=== PATIENT | female | born 1945 | race African-American/Black ===

== ENCOUNTER 2021-09-16 15:00 | Inpatient (IN) | payer MEDICAID, MEDICARE, OTHER ==
[~2021-09-16] VITALS: Ht 167.6 cm; Wt 115.7 kg
[2021-09-16] MEDS ORDERED: FOLI1TAB94 PO (15:15)
[2021-09-16] MEDS ORDERED: ONDA-104 PO (15:15)
[2021-09-16] MEDS ORDERED: TOPI25TA PO (15:15)
[2021-09-16] MEDS ORDERED: LOSA100T31 PO (15:15)
[2021-09-16] MEDS ORDERED: ACET-2154 PO (15:15)
[2021-09-16] MEDS ORDERED: THIA100T13 PO (15:15)
[2021-09-16] MEDS ORDERED: PANT40TA49 PO (15:15)
[2021-09-16] MEDS ORDERED: ASCO500C18 PO (15:15)
[2021-09-16] MEDS ORDERED: FURO-151 PO (15:15)
[2021-09-16] MEDS ORDERED: DOCU100C36 PO (15:15)
[2021-09-16] MEDS ORDERED: SIMV-46 PO (15:15)
[2021-09-16] MEDS ORDERED: POLY17PO4 PO (15:15)
[2021-09-16] MEDS ORDERED: ARIP5TAB10 PO (15:15)
[2021-09-16] MEDS ORDERED: FAMO20TA8 PO (15:15)
[2021-09-16] MEDS ORDERED: METO-357 PO (15:15)
[2021-09-16] MEDS ORDERED: MELO15TA13 PO (15:15)
[2021-09-16] MEDS ORDERED: CHOL10005 PO (15:15)
[2021-09-16] MEDS ORDERED: HEPA500034 SQ (15:23)
[2021-09-16] MEDS ORDERED: HYDR-4209 PO (15:23)
[2021-09-16] MEDS ORDERED: CALC500T13 PO (15:23)
[2021-09-16] MEDS ORDERED: HALDOL IM (15:23)
[2021-09-16] MEDS ORDERED: ATOR20TA PO (15:23)
[2021-09-16] MEDS ORDERED: NITR0.4T48 SL (15:23)
[2021-09-16] MEDS ORDERED: GABA-532 PO (15:23)
--- NOTE | 2021-09-16 15:23 | NUR ---
PATIENT WAS SEEN BY MD. SHE IS AWAKE AND ALERT. SHE IS NOT TALKING MUCH. COVID SWAB SENT TO LAB. EKG DONE
[2021-09-16 15:38] LABS: HEMATOCRIT 40.1 % (31.2-41.9); MEAN CORPUSCULAR HEMOGLOBIN 28.5 uug (24.7-32.8); MEAN CORPUSCULAR VOLUME 89.2 fL (75.5-95.3); PLATELET COUNT (AUTO) 312 K/uL (179-408)
[2021-09-16 15:47] LABS: CARBON DIOXIDE 22 mmol/L (21-32); CHLORIDE 111 mmol/L (98-107); CREATININE 1.6 mg/dL (0.6-1.3); GLUCOSE 95 mg/dL (74-106); POTASSIUM 4.2 mmol/L (3.5-5.1); UREA NITROGEN, BLOOD 34 mg/dL (7-18)
[2021-09-16 15:53] LABS: ACETAMINOPHEN < 2.0 ug/mL (10-30); ALANINE AMINOTRANSFERASE 15 U/L (14-59); ALKALINE PHOSPHATASE 136 U/L (50-136); ASPARTATE AMINOTRANSFERASE 19 U/L (15-37); BILIRUBIN,DIRECT 0.3 mg/dL (0.0-0.2); BILIRUBIN,TOTAL 0.8 mg/dL (0.2-1.0); TOTAL PROTEIN, SERUM 7.9 g/dL (6.4-8.2)
[2021-09-16 15:56] LABS: ETHANOL < 3 MG/DL (0-0)
--- NOTE | 2021-09-16 16:52 | NUR ---
Patient will not let us obtain a urine from her. She is wearing a diaper and cannot use a bedpan but she also wont open her legs so we can place a catheter and obtain urine. Celia Ramirez from crisis team for eval and I also notified her that Dr Mcintyre will be the psychiatrist for this patient per Regina and per Dr Mcintyre.
[2021-09-16] MEDS ORDERED: ONDANSETRON ODT 4 MG TAB.RAPDIS SL ONE (18:30)
[2021-09-16] MEDS ORDERED: ONDANSETRON ODT 4 MG TAB.RAPDIS ONE (18:34)
--- NOTE | 2021-09-16 18:52 | NUR ---
Ashley from crisis team here for eval. Patient drank a cup of water but refused food
[2021-09-16] MEDS ORDERED: MELOXICAM 7.5 MG TABLET PO PRN (19:00)
[2021-09-16] MEDS ORDERED: ONDANSETRON HCL 4 MG TABLET PO PRN (19:00)
[2021-09-16] MEDS ORDERED: CALCIUM CARBONATE 500 MG TAB.CHEW PO PRN (19:00)
[2021-09-16] MEDS ORDERED: ACETAMINOPHEN 325 MG TABLET PO PRN ×2 (19:00→22:00)
[2021-09-16] MEDS ORDERED: NITROGLYCERIN 0.4 MG/TAB BOTTLE SL PRN (19:00)
--- NOTE | 2021-09-16 19:20 | NUR ---
Received brief report from aoc airspace control officer and crisis rep. Pt is all set to be transfered to U. waiting on green light to push the pt from MHU. First call place to give report at 1935, aoc airspace control officer at [facility] said she or the nurse taking report will call after shift change once pt assessments are done. I said I will be awaiting their call. Pt is doing fine, VSS, she is constantly taking to herself quietly, slightly louder than kailee vol. Will try calling MHU is 30 min.
--- NOTE | 2021-09-16 19:49 | NUR ---
studing pt chart to give report soon
--- NOTE | 2021-09-16 20:00 | NUR ---
Ashley is still here finishing up her charting. Pt is resting comfortably watching tv and mummbling incoherently. Pt is on hold due to grave disability. Will call MHU for second time now.
--- NOTE | 2021-09-16 20:05 | NUR ---
Second call placed to MHU for report. Receiving nurse was currently busy passing meds and will return the call nupur.
--- NOTE | 2021-09-16 20:30 | NUR ---
Dr. Mcintyre at nursing station studing pt's paperwork and asking regarding pts condition.
--- NOTE | 2021-09-16 20:35 | NUR ---
Dr. Mcintyre at bedside to assess pt condition. asked several simple questions regarding orientation and family, she was unable to answer any questions, such as are you ?, do you have any children?, do you know where you are? etc.. pt would simply wisper yes or become selectively mute.
[2021-09-16] MEDS ORDERED: TOPI15CA11 PO (20:49)
[2021-09-16] MEDS ORDERED: ATORVASTATIN 20 MG TABLET PO SCH (21:00)
[2021-09-16] MEDS ORDERED: MISCELLANEOUS MED XX PRN (21:00)
--- NOTE | 2021-09-16 21:30 | NUR ---
pattern storage clerk called to get report. thorough report given using SBAR method. Pt is AAOx1, still mummbling incoherently to herself. language is complete giberish and nonsensical. Pt has good color and temp, VSS, PE WNL, strong and reg radial pulses, weak and reg pedal pulses. Has good cms in lower extremities, but the LE appear to weak to bare any weight, foot drop present bilaterally. Pt does not answer questions or follow commands and is selectively mute beside the incoherent rambling to herself. No s/sx of pain, sob, dizziness, n/v or distress of any kind.
[2021-09-16 21:45] VITALS: BP 137/50
--- NOTE | 2021-09-16 21:45 | NUR ---
Pt tranported to MHU via gurney without difficulty, accompanied by me. Pt placed on hospital bed without difficulty with the help of MHU staff. warehouse sorter at bedside to begin assessment.
[2021-09-16] MEDS ORDERED: BLOOD SUGAR DIAGNOSTIC 1 EACH STRIP VI ONE (22:00)
[2021-09-16] MEDS ORDERED: MAG HYDROX/AL HYDROX/SIMETH 30 ML LIQUID UDC PO PRN (22:00)
[2021-09-16] MEDS ORDERED: QUETIAPINE FUMARATE 25 MG TABLET PO PRN (22:00)
[2021-09-16] MEDS ORDERED: ZOLPIDEM 5 MG TABLET PO PRN (22:00)
--- NOTE | 2021-09-16 22:00 | NUR ---
Admit note: 75 year old female with hx: of arthritis,HDL , HTN admitted FROM ER to MHU via gurney accompanied by er staff. Pt placed on hospital bed. patient is admitted under for GD. Patient is alert to name only. confused to time and place. unable to answer question. v/s taken. Blood sugar 77 mg/dl. regional tanker truck driver SAMPLE CASE PORTER made aware. SAMPLE CASE PORTER stated it is ok patient is not diabetic. 4oz orange juice given. assisted with adl's. No belonging noted with patient. resting in bed comfortably.
[2021-09-16] MEDS: PANTOPRAZOLE SODIUM 40 MG TABLET.DR PO SCH (22:01)
[2021-09-16] MEDS: SIMVASTATIN 20 MG TABLET PO SCH (22:01)
[2021-09-16] MEDS: HEPARIN SODIUM,PORCINE 5,000 UNITS/ML VIAL SQ SCH (22:02)
--- NOTE | 2021-09-17 06:34 | NUR ---
GPS; Remain calm but noted talking to her self. confused and disoriented. incontinent of b+b. adl's provided. slept 1.15 minutes. patient refused sleeping meds. patient still refusing po meds and fluid. continue plan of care.
[2021-09-17] MEDS: MIRALAX 17 GM POWD.PACK PO SCH (08:17)
[2021-09-17] MEDS: LOSARTAN POTASSIUM 50 MG TABLET PO SCH (08:17)
[2021-09-17] MEDS: FOLIC ACID 1 MG TABLET PO SCH (08:17)
[2021-09-17] MEDS: DOCUSATE SODIUM 100 MG CAPSULE PO SCH (08:17)
[2021-09-17] MEDS: FUROSEMIDE 40 MG TABLET PO SCH (08:17)
[2021-09-17] MEDS: METOPROLOL SUCCINATE XL 50 MG TAB.SR.24H PO SCH (08:18)
[2021-09-17] MEDS: ASCORBIC ACID 500 MG TABLET PO SCH (08:18)
[2021-09-17] MEDS: PANTOPRAZOLE SODIUM 40 MG TABLET.DR PO SCH ×2 (08:18→20:18)
[2021-09-17] MEDS: THIAMINE HCL 100 MG TABLET PO SCH (08:18)
[2021-09-17] MEDS: TOPIRAMATE 25 MG TABLET PO SCH ×2 (08:18→17:00)
[2021-09-17] MEDS: HEPARIN SODIUM,PORCINE 5,000 UNITS/ML VIAL SQ SCH ×2 (08:20→20:30)
[2021-09-17] MEDS: CHOLECALCIFEROL 1,000 UNIT TABLET PO SCH (08:20)
[2021-09-17 08:43] VITALS: BP 123/58
[2021-09-17] MEDS ORDERED: FAMOTIDINE 20 MG TABLET PO SCH (09:00)
[2021-09-17] MEDS ORDERED: IV NS 1000 ML 1,000 ML IV ONE (10:30)
[2021-09-17] MEDS: FAMOTIDINE 20 MG TABLET PO SCH ×2 (12:00→20:00)
--- NOTE | 2021-09-17 15:14 | NUR ---
GPS: Nursing Notes: Straight Cath: Per Too BORING MACHINE SET UP OPERATOR's order, staff tried to straight cath. the patient to collect urine, but unable to do it because patient refused to move her heavy legs, uncooperative, patient is overweight and uncooperative, continue to monitor for safety, continue with treatment plan.
[2021-09-17 15:47] VITALS: BP 125/70
--- NOTE | 2021-09-17 18:29 | NUR ---
GPS: Nursing Notes: Thought Disorder: Patient is awake and responding to her name, poor insight, impaired judgment, refusing medications, refusing to eat, refusing nursing care, responding to internal stimuli by talking to unseen others, episodes of disrobing, internally preoccupied, unable to formulate a viable plan for self care, paranoid behavior, total care, unkempt appearance, continue with treatment plan.
[2021-09-17 20:00] VITALS: BP 135/60
[2021-09-17] MEDS: SIMVASTATIN 20 MG TABLET PO SCH (20:19)
[2021-09-17] MEDS: risperiDONE-M 0.5 MG TAB.RAPDIS PO SCH (20:19)
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
[2021-09-18 08:18] LABS: HEMATOCRIT 39.2 % (31.2-41.9); MEAN CORPUSCULAR HEMOGLOBIN 28.5 uug (24.7-32.8); MEAN CORPUSCULAR VOLUME 88.9 fL (75.5-95.3); PLATELET COUNT (AUTO) 229 K/uL (179-408)
[2021-09-18] MEDS: DOCUSATE SODIUM 100 MG CAPSULE PO SCH (08:33)
[2021-09-18] MEDS: LOSARTAN POTASSIUM 50 MG TABLET PO SCH (08:33)
[2021-09-18] MEDS: FAMOTIDINE 20 MG TABLET PO SCH ×2 (08:34→16:14)
[2021-09-18] MEDS: FUROSEMIDE 40 MG TABLET PO SCH (08:34)
[2021-09-18] MEDS: PANTOPRAZOLE SODIUM 40 MG TABLET.DR PO SCH ×2 (08:34→21:00)
[2021-09-18] MEDS: MIRALAX 17 GM POWD.PACK PO SCH (08:34)
[2021-09-18] MEDS: FOLIC ACID 1 MG TABLET PO SCH (08:34)
[2021-09-18 08:35] LABS: CARBON DIOXIDE 24 mmol/L (21-32); CHLORIDE 115 mmol/L (98-107); GLUCOSE 84 mg/dL (74-106); POTASSIUM 3.7 mmol/L (3.5-5.1)
[2021-09-18 08:36] LABS: ALANINE AMINOTRANSFERASE 17 U/L (14-59); ALKALINE PHOSPHATASE 127 U/L (50-136); ASPARTATE AMINOTRANSFERASE 21 U/L (15-37); BILIRUBIN,TOTAL 0.7 mg/dL (0.2-1.0); CREATININE 1.8 mg/dL (0.6-1.3); MAGNESIUM 2.9 mg/dL (1.8-2.4); PHOSPHOROUS 3.1 mg/dL (2.5-4.9); TOTAL PROTEIN, SERUM 7.1 g/dL (6.4-8.2); UREA NITROGEN, BLOOD 43 mg/dL (7-18)
[2021-09-18] MEDS: TOPIRAMATE 25 MG TABLET PO SCH ×2 (08:38→16:14)
[2021-09-18] MEDS: ASCORBIC ACID 500 MG TABLET PO SCH (08:38)
[2021-09-18] MEDS: THIAMINE HCL 100 MG TABLET PO SCH (08:38)
[2021-09-18] MEDS: risperiDONE-M 0.5 MG TAB.RAPDIS PO SCH ×2 (08:38→20:32)
[2021-09-18] MEDS: METOPROLOL SUCCINATE XL 50 MG TAB.SR.24H PO SCH (08:38)
[2021-09-18] MEDS: CHOLECALCIFEROL 1,000 UNIT TABLET PO SCH (08:39)
[2021-09-18] MEDS: HEPARIN SODIUM,PORCINE 5,000 UNITS/ML VIAL SQ SCH ×2 (08:43→20:33)
[2021-09-18 08:50] LABS: CREATINE KINASE, TOTAL 170 U/L (26-192)
[2021-09-18 08:55] VITALS: BP 135/72
[2021-09-18] MEDS: ENSURE ENLIVE (VAN) 240 ML LIQUID PO SCH ×2 (13:00→16:14)
[2021-09-18] MEDS ORDERED: IV D5 1/2 NS 1000 ML 1,000 ML IV ONE (14:00)
[2021-09-18 16:50] VITALS: BP 152/71
--- NOTE | 2021-09-18 17:04 | NUR ---
GPS: Nursing Notes: Thought Disorder: Patient is awake and responding to her name, impaired judgment, talking to unseen others, talking incoherently, poor insight, continue refusing her medications, but compliant with her Risperdal M-Tab, refusing her meals, refusing fluid intake, uncooperative, resistant with nursing care, episodes of disrobing, throwing the sheet, blanket, and pillow on the floor, redirected and reoriented to reality, but continue staring at the ceiling and talking to unseen others, abnormal labs. reported to Nuha Gage NP, started heplock on the left wrist, running D5%1/2 NS @ 200ml/hr per ANTENNA MACHINE OPERATOR order, unable to formulate a viable plan for self care, total care, continue to monitor for safety, continue with treatment plan.
[2021-09-18 20:07] VITALS: BP 142/70
[2021-09-18] MEDS: SIMVASTATIN 20 MG TABLET PO SCH (21:00)
--- NOTE | 2021-09-19 05:09 | NUR ---
Patient was up all night responding to internal stimuli. Cst unable to engage in any rational or meaningful conversation. The patient rambled on all night and did not have the ability to follow directions or let needs known , disrupting the room mate and even yelling during the middle of the night. The patient refused all medications but did receive a second liter of IV fluid. The heplock is in tacked at this time. This feature writer obtained a urine specimen and sent it to the lab per the MD orders. Julisa care and oral care given throughout the shift. The patient was combative and resistant to the staff providing care. Safety Stratiges remain in place and staff continues to encourage compliance and to offer fluids and food. VS are stable.
[2021-09-19 05:26] LABS: *BILIRUBIN,URIN 3+ (NEGATIVE); *CLARITY,URINE CLOUDY (CLEAR); *COLOR,URINE YELLOW (YELLOW); *KETONES,URINE 3+ (NEGATIVE); LEUKOCYTE ESTERASE ,URINE TRACE (NEGATIVE); NITRITE, URINE NEGATIVE (NEGATIVE); PH,URINE 5.5 (5.0-8.0); UGLUCOSE NEGATIVE (NEGATIVE)
[2021-09-19 05:34] LABS: *BLOOD, URINE TRACE (NEGATIVE)
[2021-09-19 05:48] LABS: *AMPHETAMINE, URINE NEGATIVE (NEGATIVE); *CANNABINOID, URINE NEGATIVE (NEGATIVE); *COCCAINE, URINE NEGATIVE (NEGATIVE); *OPIATE, URINE NEGATIVE (NEGATIVE); *PHENCYCLIDINE SCREEN,URINE NEGATIVE (NEGATIVE)
[2021-09-19 06:11] LABS: *CREATININE,URINE 274.7 mg/dL (30-125); *URINE TOTAL PROTEIN RANDOM 92.9 mg/dL (<150/24HR)
[2021-09-19 06:33] LABS: BACTERIA,URINE MANY /HPF (NONE SEEN); RBC,URINE 0-3 /HPF (0-3); SQUAMOUS EPITHELIAL CELL,UR MANY /HPF (NONE SEEN)
[2021-09-19 07:06] LABS: HEMATOCRIT 38.7 % (31.2-41.9); MEAN CORPUSCULAR HEMOGLOBIN 28.7 uug (24.7-32.8); MEAN CORPUSCULAR VOLUME 88.5 fL (75.5-95.3); PLATELET COUNT (AUTO) 242 K/uL (179-408)
[2021-09-19 07:23] LABS: ALANINE AMINOTRANSFERASE 13 U/L (14-59); ALKALINE PHOSPHATASE 135 U/L (50-136); ASPARTATE AMINOTRANSFERASE 20 U/L (15-37); BILIRUBIN,TOTAL 0.8 mg/dL (0.2-1.0); CARBON DIOXIDE 20 mmol/L (21-32); CHLORIDE 117 mmol/L (98-107); CREATINE KINASE, TOTAL 208 U/L (26-192); CREATININE 1.8 mg/dL (0.6-1.3); GLUCOSE 103 mg/dL (74-106); PHOSPHOROUS 2.4 mg/dL (2.5-4.9); POTASSIUM 3.9 mmol/L (3.5-5.1); TOTAL PROTEIN, SERUM 7.3 g/dL (6.4-8.2); UREA NITROGEN, BLOOD 36 mg/dL (7-18)
[2021-09-19 07:52] VITALS: BP 146/78
[2021-09-19] MEDS: FOLIC ACID 1 MG TABLET PO SCH (08:43)
[2021-09-19] MEDS: LOSARTAN POTASSIUM 50 MG TABLET PO SCH (08:43)
[2021-09-19] MEDS: DOCUSATE SODIUM 100 MG CAPSULE PO SCH (08:43)
[2021-09-19] MEDS: ENSURE ENLIVE (VAN) 240 ML LIQUID PO SCH ×3 (08:43→17:00)
[2021-09-19] MEDS: FUROSEMIDE 40 MG TABLET PO SCH (08:43)
[2021-09-19] MEDS: FAMOTIDINE 20 MG TABLET PO SCH ×2 (08:44→17:00)
[2021-09-19] MEDS: TOPIRAMATE 25 MG TABLET PO SCH ×2 (08:44→17:00)
[2021-09-19] MEDS: PANTOPRAZOLE SODIUM 40 MG TABLET.DR PO SCH ×2 (08:44→21:00)
[2021-09-19] MEDS: METOPROLOL SUCCINATE XL 50 MG TAB.SR.24H PO SCH (08:44)
[2021-09-19] MEDS: MIRALAX 17 GM POWD.PACK PO SCH (08:44)
[2021-09-19] MEDS: CHOLECALCIFEROL 1,000 UNIT TABLET PO SCH (08:45)
[2021-09-19] MEDS: HEPARIN SODIUM,PORCINE 5,000 UNITS/ML VIAL SQ SCH ×2 (08:45→21:16)
[2021-09-19] MEDS: THIAMINE HCL 100 MG TABLET PO SCH (08:45)
[2021-09-19] MEDS: ASCORBIC ACID 500 MG TABLET PO SCH (08:45)
[2021-09-19] MEDS: risperiDONE-M 0.5 MG TAB.RAPDIS PO SCH ×2 (08:52→21:00)
--- NOTE | 2021-09-19 11:38 | NUR ---
FAWAD Initial Discharge Note: Pt was brought to [facility] from [facility] ([phone]). Layla in admissions stated pt is welcome back upon discharge. FAWAD contacted pt's daughter, Michelle ([phone]) who stated that she would like pt to discharge to a closer SNF upon discharge. FAWAD will work with pt, family and MD to ensure a safe and proper discharge plan.
--- NOTE | 2021-09-19 11:39 | NUR ---
FAWAD Admit Source: Pt was brought to [facility] from [facility] ([phone]). Layla in admissions stated pt is welcome back upon discharge. FAWAD contacted pt's daughter, Michelle ([phone]) who stated that she would like pt to discharge to a closer SNF upon discharge. FAWAD will work with pt, family and MD to ensure a safe and proper discharge plan.
--- NOTE | 2021-09-19 11:43 | NUR ---
Firearms Report: Boat Designer completed and submitted a [employer] firearms report for 5150 grave disability certifications. A copy of report has been placed in patient chart.
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
--- NOTE | 2021-09-19 15:10 | NUR ---
FAWAD UR Note: FAWAD contacted Kiley Altamirano ([phone]) with [employer] insurance and left a detailed voicemail for a call back due to pt's authorization ending today on 09/19/21, FAWAD left clinical information on the voicemail such as, pt's history & physical, authorization number, D.O.B, medication [id number] and non compliance information, diagnosis per notes and progress of patient per notes. FAWAD requested a call back today to discuss further details for authorization.
--- NOTE | 2021-09-19 15:35 | NUR ---
FAWAD UR Note: FAWAD spoke with Kiley from [employer] who authorized pt to continue for care at [facility] until 09/22/21. Authorization #[id number]
[2021-09-19 16:01] VITALS: BP 118/63
[2021-09-19] MEDS: CEphaleXIN 500 MG CAPSULE PO SCH (17:00)
[2021-09-19] MEDS ORDERED: NEUTRA PHOS PACKET PO ONE ×2 (17:00)
--- NOTE | 2021-09-19 17:27 | NUR ---
GPS: Nursing Notes: Print Information: Depakote, Topamax, and Risperdal: Staff gave printed information regarding Depakote, Topamax, and Risperdal to patient, explained the pros and cons of medications, continue to refuse her psych. medications, continue to monitor for safety, continue with treatment plan.
--- NOTE | 2021-09-19 17:46 | NUR ---
GPS: Nursing Notes: 5250 & Riese Petition: Staff submitted 5250 and Riese Petition through the [facility] portal, continue to monitor for safety, continue with treatment plan.
[2021-09-19 19:49] VITALS: BP 140/66
[2021-09-19] MEDS: DIVALPROEX 125 MG TABLET.DR PO SCH (21:00)
[2021-09-19] MEDS: SIMVASTATIN 20 MG TABLET PO SCH (21:00)
--- NOTE | 2021-09-20 06:04 | NUR ---
Patient stayed up most of the time at [facility], able to slept for 45 minutes only. Distracted with environmental stimuli, yelling if gets agitated. Strongly refused to take oral medications and nursing care. Continue to encourage for hygiene, pericare done this morning, needs maximum assist. Safety strategies provided. Will continue to monitor
[2021-09-20 06:51] LABS: HEMATOCRIT 37.5 % (31.2-41.9); MEAN CORPUSCULAR HEMOGLOBIN 28.9 uug (24.7-32.8); MEAN CORPUSCULAR VOLUME 88.6 fL (75.5-95.3); PLATELET COUNT (AUTO) 198 K/uL (179-408)
[2021-09-20 07:17] LABS: CARBON DIOXIDE 22 mmol/L (21-32); CHLORIDE 119 mmol/L (98-107); GLUCOSE 90 mg/dL (74-106); MAGNESIUM 2.8 mg/dL (1.8-2.4); POTASSIUM 3.2 mmol/L (3.5-5.1); UREA NITROGEN, BLOOD 41 mg/dL (7-18)
[2021-09-20] MEDS: THIAMINE HCL 100 MG TABLET PO SCH (09:00)
[2021-09-20] MEDS: HEPARIN SODIUM,PORCINE 5,000 UNITS/ML VIAL SQ SCH (09:00)
[2021-09-20] MEDS: DIVALPROEX 125 MG TABLET.DR PO SCH (09:00)
[2021-09-20] MEDS: LOSARTAN POTASSIUM 50 MG TABLET PO SCH (09:00)
[2021-09-20] MEDS: MIRALAX 17 GM POWD.PACK PO SCH (09:00)
[2021-09-20] MEDS: ASCORBIC ACID 500 MG TABLET PO SCH (09:00)
[2021-09-20] MEDS: CEphaleXIN 500 MG CAPSULE PO SCH (09:00)
[2021-09-20] MEDS: METOPROLOL SUCCINATE XL 50 MG TAB.SR.24H PO SCH (09:00)
[2021-09-20] MEDS: risperiDONE-M 0.5 MG TAB.RAPDIS PO SCH (09:00)
[2021-09-20] MEDS: DOCUSATE SODIUM 100 MG CAPSULE PO SCH (09:00)
[2021-09-20] MEDS: PANTOPRAZOLE SODIUM 40 MG TABLET.DR PO SCH (09:00)
[2021-09-20] MEDS: FOLIC ACID 1 MG TABLET PO SCH (09:00)
[2021-09-20] MEDS: FUROSEMIDE 40 MG TABLET PO SCH (09:00)
[2021-09-20] MEDS: TOPIRAMATE 25 MG TABLET PO SCH (09:00)
[2021-09-20] MEDS: ENSURE ENLIVE (VAN) 240 ML LIQUID PO SCH (09:00)
[2021-09-20] MEDS: FAMOTIDINE 20 MG TABLET PO SCH (09:00)
[2021-09-20] MEDS: CHOLECALCIFEROL 1,000 UNIT TABLET PO SCH (09:00)
[2021-09-20 09:06] LABS: ALBUMIN 3.4 g/dL (2.9-4.4); ALPHA-1-GLOBULIN 0.2 g/dL (0.0-0.4); ALPHA-2-GLOBULIN 0.6 g/dL (0.4-1.0); BETA GLOBULIN 1.1 g/dL (0.7-1.3); GAMMA GLOBULIN 1.4 g/dL (0.4-1.8); GLOBULIN, TOTAL 3.4 g/dL (2.2-3.9); M-SPIKE Not Observed g/dL (Not Observed)
[2021-09-20 09:06] LABS: ALPHA-1-GLOBULIN 0.2 g/dL (0.0-0.4); ALPHA-2-GLOBULIN 0.6 g/dL (0.4-1.0); GAMMA GLOBULIN 1.2 g/dL (0.4-1.8); GLOBULIN, TOTAL 3.1 g/dL (2.2-3.9); M-SPIKE Not Observed g/dL (Not Observed)
[2021-09-20] MEDS ORDERED: POTASSIUM CHLORIDE 10 MEQ TAB.PRT.SR PO ONE (09:15)
[2021-09-20] MEDS ORDERED: IV D5W 1000ML 1,000 ML IV ONE (09:45)
--- NOTE | 2021-09-20 09:46 | NUR ---
patient refused to eat and drink, refused her meds, does not open her mouth, high sodium is reported to dr jeong with order to give D5 at 100cc per hour, however patient is going to be transferred to Medsur unit for further care.
--- NOTE | 2021-09-20 09:56 | NUR ---
paged dr alonzo to notify patient is going to be transferred to Medsurge Unit, waiting for call back
--- NOTE | 2021-09-20 11:27 | NUR ---
FAWAD Transfer: Pt will be transferring the [facility] 3rd floor due to Hypernatremia per report. Pt was brought to [facility] from [facility] ([phone]). , in admissions stated pt is welcome back upon discharge. FAWAD contacted pt's daughter, Michelle ([phone]) and notified her that pt is discharging to medical floor due to hypernatremia. Michelle is aware and agreeable with the plan. Michelle asked to be notified with further discharge details prior to discharge back to [facility] upon discharge.
--- NOTE | 2021-09-20 12:42 | NUR ---
patient transferred to [facility], report given to Karen ANN from medsurge floor, no skin issues noted, bedbath given, IV started 20 guaze to left wrist, pharmacy Miss Olivo made aware that potassium was not replaced orally because patient refused, so need to replace intravenously. Dr Chaudhry is aware that patient is going to be admitted to medsurge floor.
[2021-09-20] MEDS ORDERED: RISP0.5T74 PO (13:54)
[2021-09-20] MEDS ORDERED: TOPI25TA PO (13:55)
[2021-09-20] MEDS ORDERED: DIVA125T2 PO (13:56)
[2021-09-20] MEDS ORDERED: LACT-246 PO (13:57)
[2021-09-20] MEDS ORDERED: ZOLP5TAB2 PO (13:59)
[2021-09-20] MEDS ORDERED: MAG355OR18 PO (14:01)
--- NOTE | 2021-09-21 10:09 | NUR ---
FAWAD UR Note Update: FAWAD contacted Kiley Altamirano ([phone]) with [employer] insurance and notified her regarding pt's discharge to medical floor on 09/20/21 due to Hypernatremia. FAWAD stated that medical floor is aware of pt's psychiatric hold. Kiley stated MHU SW should call [facility] to begin a new admission process once pt returns to MHU for readmission. Pt's authorization #:[id number]. Pt's daughter, Michelle ([phone]) is aware of pt's discharge to med floor due to hypernatremia.
== END 2021-09-20 12:00 | disposition short-term general hospital (02) | DRG 885 ==
LOC: ER 15:00 → TRANSITION 20:23 → GPS 21:15
PROVIDERS: ADMIT Psychiatry & Neurology Psychiatry; ATTEND Registered Nurse
DX: F29 Unspecified psychosis not due to a substance or known physiological condition (principal); N17.0 Acute kidney failure with tubular necrosis; N18.9 Chronic kidney disease, unspecified; G93.41 Metabolic encephalopathy; Z68.41 Body mass index [BMI] 40.0-44.9, adult; E87.0 Hyperosmolality and hypernatremia; N39.0 Urinary tract infection, site not specified; E44.0 Moderate protein-calorie malnutrition; F20.9 Schizophrenia, unspecified; E66.01 Morbid (severe) obesity due to excess calories; E78.5 Hyperlipidemia, unspecified; E86.0 Dehydration; F03.90 Unspecified dementia, unspecified severity, without behavioral disturbance, psychotic disturbance, mood disturbance, and anxiety; F39 Unspecified mood [affective] disorder; I25.10 Atherosclerotic heart disease of native coronary artery without angina pectoris; Z91.19 Patient's noncompliance with other medical treatment and regimen; I25.2 Old myocardial infarction; I12.9 Hypertensive chronic kidney disease with stage 1 through stage 4 chronic kidney disease, or unspecified chronic kidney disease; K21.9 Gastro-esophageal reflux disease without esophagitis; Z79.899 Other long term (current) drug therapy
CPT/HCPCS: 36415; 70450; 71045; 83735; 83970; 84100; 84155; 84156; 84165; 84300; 85025; 87086; 93005; 97161; A4663; C1758; G0480; J1644; J3490; J7030; J7070; Q0162

== ENCOUNTER 2021-09-20 13:12 | Inpatient (IN) | payer OTHER ==
[~2021-09-20] VITALS: Ht 167.6 cm; Wt 116.6 kg
[2021-09-20 12:45] VITALS: BP 118/74
[~2021-09-20 13:12] MED LIST: ACET-2154 PO; ARIP5TAB10 PO; ASCO500C18 PO; CALC500T13 PO; CHOL10005 PO; DOCU100C36 PO; FAMO20TA8 PO; FOLI1TAB94 PO; FURO-151 PO; GABA-532 PO; HALDOL IM; HEPA500034 SQ; HYDR-4209 PO; LOSA100T31 PO; MELO15TA13 PO; METO-357 PO; NITR0.4T48 SL; ONDA-104 PO; PANT40TA49 PO; POLY17PO4 PO; SIMV-46 PO; THIA100T13 PO; TOPI15CA11 PO
[2021-09-20] MEDS ORDERED: RISP0.5T74 PO (13:54)
[2021-09-20] MEDS ORDERED: TOPI25TA PO (13:55)
[2021-09-20] MEDS ORDERED: DIVA125T2 PO (13:56)
[2021-09-20] MEDS ORDERED: LACT-246 PO (13:57)
[2021-09-20] MEDS ORDERED: ZOLP5TAB2 PO (13:59)
[2021-09-20] MEDS ORDERED: MAG355OR18 PO (14:01)
[2021-09-20] MEDS: POTASSIUM CHLORIDE 50 ML IV SCH ×3 (14:18→16:37)
[2021-09-20 16:30] VITALS: BP 120/76
[2021-09-20] MEDS ORDERED: IV D5/ 0.9% NACL 1,000 ML IV PRN (17:30)
[2021-09-20] MEDS: IV D5W 1000ML 1,000 ML IV PRN (18:06)
[2021-09-20 20:00] VITALS: BP 114/73
[2021-09-20] MEDS: SIMVASTATIN 20 MG TABLET PO SCH (20:55)
[2021-09-20] MEDS: risperiDONE 1 MG TABLET PO SCH (20:55)
[2021-09-20] MEDS: DIVALPROEX 125 MG TABLET.DR PO SCH (20:55)
[2021-09-20] MEDS: HEPARIN SODIUM,PORCINE 5,000 UNITS/ML VIAL SQ SCH (21:00)
[2021-09-21] MEDS: ONDANSETRON 4 MG/2 ML VIAL IV PRN (02:23)
[2021-09-21] MEDS: IV D5W 1000ML 1,000 ML IV PRN ×2 (04:15→14:49)
[2021-09-21 04:22] VITALS: BP 101/58
[2021-09-21 06:42] LABS: HEMATOCRIT 36.9 % (31.2-41.9); MEAN CORPUSCULAR HEMOGLOBIN 28.6 uug (24.7-32.8); MEAN CORPUSCULAR VOLUME 89.3 fL (75.5-95.3); PLATELET COUNT (AUTO) 178 K/uL (179-408)
[2021-09-21 07:13] LABS: CARBON DIOXIDE 25 mmol/L (21-32); CHLORIDE 115 mmol/L (98-107); CHOLESTEROL 248 mg/dL (<200); CREATININE 1.9 mg/dL (0.6-1.3); GLUCOSE 152 mg/dL (74-106); HDL CHOLESTEROL 58 mg/dL (40-60); MAGNESIUM 2.6 mg/dL (1.8-2.4); PHOSPHOROUS 2.3 mg/dL (2.5-4.9); POTASSIUM 3.4 mmol/L (3.5-5.1); TRIGLYCERIDES 119 MG/DL (30-150); UREA NITROGEN, BLOOD 37 mg/dL (7-18)
[2021-09-21] MEDS: DIVALPROEX 125 MG TABLET.DR PO SCH ×3 (08:07→21:00)
[2021-09-21] MEDS: ACETAMINOPHEN 325 MG TABLET PO PRN (08:07)
[2021-09-21] MEDS: CHOLECALCIFEROL 1,000 UNIT TABLET PO SCH (08:07)
[2021-09-21] MEDS: DOCUSATE SODIUM 100 MG CAPSULE PO SCH (08:07)
[2021-09-21] MEDS: THIAMINE HCL 100 MG TABLET PO SCH (08:07)
[2021-09-21] MEDS: risperiDONE 1 MG TABLET PO SCH ×2 (08:07→21:00)
[2021-09-21] MEDS: ASCORBIC ACID 500 MG TABLET PO SCH (08:07)
[2021-09-21] MEDS: MIRALAX 17 GM POWD.PACK PO SCH (08:08)
[2021-09-21] MEDS: METOPROLOL SUCCINATE XL 50 MG TAB.SR.24H PO SCH (08:08)
[2021-09-21] MEDS: FAMOTIDINE 20 MG TABLET PO SCH (08:08)
[2021-09-21] MEDS: FOLIC ACID 1 MG TABLET PO SCH (08:08)
[2021-09-21] MEDS: ENSURE WITH FIBER 237 ML LIQUID (CHOCOLATE) PO SCH ×3 (08:08→16:12)
[2021-09-21] MEDS: HEPARIN SODIUM,PORCINE 5,000 UNITS/ML VIAL SQ SCH ×2 (08:09→21:00)
[2021-09-21] MEDS ORDERED: LOSARTAN POTASSIUM 50 MG TABLET PO SCH (09:00)
[2021-09-21] MEDS ORDERED: FAMOTIDINE 20 MG TABLET PO SCH (09:00)
[2021-09-21] MEDS ORDERED: POTASSIUM CHLORIDE 10 MEQ TAB.PRT.SR PO ONE (09:15)
[2021-09-21 13:00] VITALS: BP 126/61
[2021-09-21 14:54] VITALS: BP 122/51
[2021-09-21] MEDS ORDERED: NEUTRA PHOS PACKET PO ONE (15:30)
[2021-09-21 20:00] VITALS: BP 113/58
[2021-09-21] MEDS: MUPIROCIN 2% OINT 22 GM TUBE NS SCH (20:56)
[2021-09-21] MEDS: SIMVASTATIN 20 MG TABLET PO SCH (21:00)
[2021-09-22] MEDS: IV D5W 1000ML 1,000 ML IV PRN (02:01)
[2021-09-22 04:00] VITALS: BP 111/55
[2021-09-22] MEDS: ONDANSETRON 4 MG/2 ML VIAL IV PRN (04:25)
[2021-09-22 06:42] LABS: CARBON DIOXIDE 27 mmol/L (21-32); CHLORIDE 110 mmol/L (98-107); CREATININE 1.9 mg/dL (0.6-1.3); GLUCOSE 137 mg/dL (74-106); PHOSPHOROUS 2.7 mg/dL (2.5-4.9); POTASSIUM 3.3 mmol/L (3.5-5.1); UREA NITROGEN, BLOOD 36 mg/dL (7-18)
[2021-09-22] MEDS: POTASSIUM CHLORIDE 20 MEQ in IV D5 1/2 NS 1000 ML 1,000 ML IV PRN ×2 (08:55→21:24)
[2021-09-22] MEDS: CEFTRIAXONE 1 G in IV DEXTROSE 5% 50 ML IV SCH (08:57)
[2021-09-22] MEDS: MUPIROCIN 2% OINT 22 GM TUBE NS SCH ×2 (08:58→20:31)
[2021-09-22] MEDS: DOCUSATE SODIUM 100 MG CAPSULE PO SCH (09:00)
[2021-09-22] MEDS: FAMOTIDINE 20 MG TABLET PO SCH (09:00)
[2021-09-22] MEDS: THIAMINE HCL 100 MG TABLET PO SCH (09:00)
[2021-09-22] MEDS: METOPROLOL SUCCINATE XL 50 MG TAB.SR.24H PO SCH (09:00)
[2021-09-22] MEDS: CHOLECALCIFEROL 1,000 UNIT TABLET PO SCH (09:00)
[2021-09-22] MEDS: risperiDONE 1 MG TABLET PO SCH ×2 (09:00→20:31)
[2021-09-22] MEDS: MIRALAX 17 GM POWD.PACK PO SCH (09:00)
[2021-09-22] MEDS: ASCORBIC ACID 500 MG TABLET PO SCH (09:00)
[2021-09-22] MEDS: DIVALPROEX 125 MG TABLET.DR PO SCH ×3 (09:00→20:31)
[2021-09-22] MEDS: FOLIC ACID 1 MG TABLET PO SCH (09:00)
[2021-09-22] MEDS: ENSURE WITH FIBER 237 ML LIQUID (CHOCOLATE) PO SCH ×3 (09:01→17:42)
[2021-09-22] MEDS: HEPARIN SODIUM,PORCINE 5,000 UNITS/ML VIAL SQ SCH ×2 (10:00→20:47)
[2021-09-22 12:00] VITALS: BP 103/48
[2021-09-22 16:30] VITALS: BP 115/55
[2021-09-22 20:00] VITALS: BP 121/56
[2021-09-22] MEDS: SIMVASTATIN 20 MG TABLET PO SCH (20:31)
[2021-09-23 04:00] VITALS: BP 110/59
[2021-09-23 04:56] LABS: *BILIRUBIN,URIN NEGATIVE (NEGATIVE); *BLOOD, URINE 2+ (NEGATIVE); *CLARITY,URINE SLIGHTLY CLOUDY (CLEAR); *COLOR,URINE YELLOW (YELLOW); *KETONES,URINE TRACE (NEGATIVE); LEUKOCYTE ESTERASE ,URINE TRACE (NEGATIVE); NITRITE, URINE NEGATIVE (NEGATIVE); PH,URINE 5.5 (5.0-8.0); UGLUCOSE NEGATIVE (NEGATIVE)
[2021-09-23 04:58] LABS: BACTERIA,URINE FEW /HPF (NONE SEEN); SQUAMOUS EPITHELIAL CELL,UR MODERATE /HPF (NONE SEEN)
[2021-09-23] MEDS: POTASSIUM CHLORIDE 20 MEQ in IV D5 1/2 NS 1000 ML 1,000 ML IV PRN (06:39)
[2021-09-23 06:55] LABS: HEMATOCRIT 34.2 % (31.2-41.9); MEAN CORPUSCULAR HEMOGLOBIN 29.2 uug (24.7-32.8); MEAN CORPUSCULAR VOLUME 88.8 fL (75.5-95.3); PLATELET COUNT (AUTO) 142 K/uL (179-408)
[2021-09-23 07:16] LABS: CREATININE 1.3 mg/dL (0.6-1.3); MAGNESIUM 2.6 mg/dL (1.8-2.4); PHOSPHOROUS 2.6 mg/dL (2.5-4.9); POTASSIUM 4.5 mmol/L (3.5-5.1); URIC ACID 12.1 mg/dL (2.6-6.0)
[2021-09-23 07:45] VITALS: BP 116/62
[2021-09-23 08:22] LABS: THYROID STIMULATING HORMONE 2.919 mIU/mL (0.358-3.740)
[2021-09-23] MEDS: HEPARIN SODIUM,PORCINE 5,000 UNITS/ML VIAL SQ SCH ×2 (08:42→20:23)
[2021-09-23] MEDS: MUPIROCIN 2% OINT 22 GM TUBE NS SCH ×2 (08:42→20:23)
[2021-09-23] MEDS: risperiDONE 1 MG TABLET PO SCH (09:00)
[2021-09-23] MEDS: MIRALAX 17 GM POWD.PACK PO SCH (09:00)
[2021-09-23] MEDS: DIVALPROEX 125 MG TABLET.DR PO SCH ×3 (09:00→20:23)
[2021-09-23] MEDS: ASCORBIC ACID 500 MG TABLET PO SCH (09:00)
[2021-09-23] MEDS: CHOLECALCIFEROL 1,000 UNIT TABLET PO SCH (09:00)
[2021-09-23] MEDS: FAMOTIDINE 20 MG TABLET PO SCH (09:00)
[2021-09-23] MEDS: METOPROLOL SUCCINATE XL 50 MG TAB.SR.24H PO SCH (09:00)
[2021-09-23] MEDS: DOCUSATE SODIUM 100 MG CAPSULE PO SCH (09:00)
[2021-09-23] MEDS: FOLIC ACID 1 MG TABLET PO SCH (09:00)
[2021-09-23] MEDS: ENSURE WITH FIBER 237 ML LIQUID (CHOCOLATE) PO SCH ×3 (09:00→16:05)
[2021-09-23] MEDS: THIAMINE HCL 100 MG TABLET PO SCH (09:00)
[2021-09-23] MEDS: CEFTRIAXONE 1 G in IV DEXTROSE 5% 50 ML IV SCH (09:30)
[2021-09-23 11:40] VITALS: BP 125/60
[2021-09-23] MEDS ORDERED: IV D5/ 0.9% NACL 1,000 ML IV PRN (12:00)
[2021-09-23] MEDS: risperiDONE-M 0.5 MG TAB.RAPDIS PO SCH ×2 (13:30→16:02)
[2021-09-23] MEDS: OLANZAPINE 10 MG VIAL IM PRN ×2 (13:52→16:04)
[2021-09-23 15:25] VITALS: BP 104/84
[2021-09-23 20:00] VITALS: BP 121/54
[2021-09-23] MEDS: SIMVASTATIN 20 MG TABLET PO SCH (20:23)
[2021-09-24 05:00] VITALS: BP 128/53
[2021-09-24 07:07] LABS: HEMATOCRIT 33.5 % (31.2-41.9); MEAN CORPUSCULAR HEMOGLOBIN 29.2 uug (24.7-32.8); MEAN CORPUSCULAR VOLUME 89.2 fL (75.5-95.3); PLATELET COUNT (AUTO) 136 K/uL (179-408)
[2021-09-24 07:22] LABS: CREATININE 1.3 mg/dL (0.6-1.3); MAGNESIUM 2.1 mg/dL (1.8-2.4); PHOSPHOROUS 2.5 mg/dL (2.5-4.9); POTASSIUM 3.8 mmol/L (3.5-5.1)
[2021-09-24] MEDS: risperiDONE-M 0.5 MG TAB.RAPDIS PO SCH ×2 (09:29→17:10)
[2021-09-24] MEDS: DIVALPROEX 125 MG TABLET.DR PO SCH ×3 (09:30→20:05)
[2021-09-24] MEDS: DOCUSATE SODIUM 100 MG CAPSULE PO SCH (09:43)
[2021-09-24] MEDS: FOLIC ACID 1 MG TABLET PO SCH (09:43)
[2021-09-24] MEDS: MUPIROCIN 2% OINT 22 GM TUBE NS SCH ×2 (09:43→20:06)
[2021-09-24] MEDS: THIAMINE HCL 100 MG TABLET PO SCH (09:44)
[2021-09-24] MEDS: FAMOTIDINE 20 MG TABLET PO SCH (09:44)
[2021-09-24] MEDS: ASCORBIC ACID 500 MG TABLET PO SCH (09:44)
[2021-09-24] MEDS: CHOLECALCIFEROL 1,000 UNIT TABLET PO SCH (09:44)
[2021-09-24] MEDS: METOPROLOL SUCCINATE XL 50 MG TAB.SR.24H PO SCH (09:45)
[2021-09-24] MEDS: ENSURE WITH FIBER 237 ML LIQUID (CHOCOLATE) PO SCH ×3 (09:46→17:11)
[2021-09-24] MEDS: HEPARIN SODIUM,PORCINE 5,000 UNITS/ML VIAL SQ SCH (09:46)
[2021-09-24] MEDS: MIRALAX 17 GM POWD.PACK PO SCH (09:47)
[2021-09-24] MEDS: CEFTRIAXONE 1 G in IV DEXTROSE 5% 50 ML IV SCH (10:39)
[2021-09-24] MEDS: POTASSIUM CHLORIDE 20 MEQ in IV D5 1/2 NS 1000 ML 1,000 ML IV PRN (19:54)
[2021-09-24 20:00] VITALS: BP 149/65
[2021-09-24] MEDS: ENOXAPARIN SODIUM 40 MG/0.4 ML DISP.SYRIN SQ SCH (20:04)
[2021-09-24] MEDS: SIMVASTATIN 20 MG TABLET PO SCH (20:05)
[2021-09-24] MEDS: ONDANSETRON 4 MG/2 ML VIAL IV PRN (21:43)
[2021-09-25 06:00] VITALS: BP 142/56
[2021-09-25 07:05] LABS: HEMATOCRIT 29.9 % (31.2-41.9); MEAN CORPUSCULAR HEMOGLOBIN 29.1 uug (24.7-32.8); MEAN CORPUSCULAR VOLUME 90.4 fL (75.5-95.3); PLATELET COUNT (AUTO) 119 K/uL (179-408)
[2021-09-25 08:37] LABS: CARBON DIOXIDE 22 mmol/L (21-32); CHLORIDE 117 mmol/L (98-107); CREATININE 1.4 mg/dL (0.6-1.3); GLUCOSE 110 mg/dL (74-106); MAGNESIUM 2.4 mg/dL (1.8-2.4); POTASSIUM 4.1 mmol/L (3.5-5.1); UREA NITROGEN, BLOOD 14 mg/dL (7-18)
[2021-09-25] MEDS: MIRALAX 17 GM POWD.PACK PO SCH ×2 (09:00→09:43)
[2021-09-25] MEDS: DOCUSATE SODIUM 100 MG CAPSULE PO SCH ×2 (09:00→09:43)
[2021-09-25] MEDS: ASCORBIC ACID 500 MG TABLET PO SCH ×2 (09:00→09:43)
[2021-09-25] MEDS: DIVALPROEX 125 MG TABLET.DR PO SCH ×2 (09:42→13:52)
[2021-09-25] MEDS: THIAMINE HCL 100 MG TABLET PO SCH (09:43)
[2021-09-25] MEDS: FOLIC ACID 1 MG TABLET PO SCH (09:43)
[2021-09-25] MEDS: FAMOTIDINE 20 MG TABLET PO SCH (09:43)
[2021-09-25] MEDS: METOPROLOL SUCCINATE XL 50 MG TAB.SR.24H PO SCH (09:43)
[2021-09-25] MEDS: risperiDONE-M 0.5 MG TAB.RAPDIS PO SCH ×3 (09:43→16:43)
[2021-09-25] MEDS: CHOLECALCIFEROL 1,000 UNIT TABLET PO SCH (09:44)
[2021-09-25] MEDS: MUPIROCIN 2% OINT 22 GM TUBE NS SCH ×2 (09:44→22:08)
[2021-09-25] MEDS: ENSURE WITH FIBER 237 ML LIQUID (CHOCOLATE) PO SCH ×3 (09:44→15:42)
[2021-09-25] MEDS: CEFTRIAXONE 1 G in IV DEXTROSE 5% 50 ML IV SCH (09:44)
[2021-09-25 16:46] VITALS: BP 143/65
[2021-09-25] MEDS: POTASSIUM CHLORIDE 20 MEQ in IV D5 1/2 NS 1000 ML 1,000 ML IV PRN (18:17)
[2021-09-25 20:00] VITALS: BP 106/40
[2021-09-25] MEDS: SIMVASTATIN 20 MG TABLET PO SCH (21:00)
[2021-09-25] MEDS: ENOXAPARIN SODIUM 40 MG/0.4 ML DISP.SYRIN SQ SCH (22:09)
[2021-09-25 22:33] LABS: NEUTROPHILS % (MANUAL) 0 % (42-75)
[2021-09-26 04:00] VITALS: BP 126/65
[2021-09-26] MEDS: POTASSIUM CHLORIDE 20 MEQ in IV D5 1/2 NS 1000 ML 1,000 ML IV PRN ×2 (04:10→18:16)
[2021-09-26 06:58] LABS: CREATININE 1.2 mg/dL (0.6-1.3); POTASSIUM 3.9 mmol/L (3.5-5.1)
[2021-09-26 08:00] VITALS: BP 143/63
[2021-09-26] MEDS: ASCORBIC ACID 500 MG TABLET PO SCH (09:00)
[2021-09-26] MEDS: risperiDONE-M 0.5 MG TAB.RAPDIS PO SCH ×2 (09:00→17:11)
[2021-09-26] MEDS: CHOLECALCIFEROL 1,000 UNIT TABLET PO SCH (09:00)
[2021-09-26] MEDS: FOLIC ACID 1 MG TABLET PO SCH (09:00)
[2021-09-26] MEDS: DOCUSATE SODIUM 100 MG CAPSULE PO SCH (09:00)
[2021-09-26] MEDS: FAMOTIDINE 20 MG TABLET PO SCH (09:00)
[2021-09-26] MEDS: THIAMINE HCL 100 MG TABLET PO SCH (09:00)
[2021-09-26] MEDS: METOPROLOL SUCCINATE XL 50 MG TAB.SR.24H PO SCH (09:00)
[2021-09-26] MEDS: ENSURE WITH FIBER 237 ML LIQUID (CHOCOLATE) PO SCH ×3 (09:36→16:38)
[2021-09-26] MEDS: MIRALAX 17 GM POWD.PACK PO SCH (09:36)
[2021-09-26] MEDS: MUPIROCIN 2% OINT 22 GM TUBE NS SCH ×2 (09:37→20:52)
[2021-09-26] MEDS: OLANZAPINE 10 MG VIAL IM PRN (11:02)
[2021-09-26] MEDS: CEFTRIAXONE 1 G in IV DEXTROSE 5% 50 ML IV SCH (11:03)
[2021-09-26 16:00] VITALS: BP 136/62
[2021-09-26 20:00] VITALS: BP 157/85
[2021-09-26] MEDS: SIMVASTATIN 20 MG TABLET PO SCH (20:47)
[2021-09-26] MEDS: ENOXAPARIN SODIUM 40 MG/0.4 ML DISP.SYRIN SQ SCH (20:51)
[2021-09-27 04:00] VITALS: BP 139/83
[2021-09-27 06:11] LABS: HEMATOCRIT 30.4 % (31.2-41.9); MEAN CORPUSCULAR HEMOGLOBIN 29.3 uug (24.7-32.8); MEAN CORPUSCULAR VOLUME 88.4 fL (75.5-95.3); PLATELET COUNT (AUTO) 133 K/uL (179-408)
[2021-09-27 06:35] LABS: CREATININE 1.1 mg/dL (0.6-1.3); PHOSPHOROUS 2.8 mg/dL (2.5-4.9); POTASSIUM 3.6 mmol/L (3.5-5.1)
[2021-09-27 08:00] VITALS: BP 148/73
[2021-09-27] MEDS: POTASSIUM CHLORIDE 20 MEQ in IV D5 1/2 NS 1000 ML 1,000 ML IV PRN ×2 (08:16→18:47)
[2021-09-27] MEDS: THIAMINE HCL 100 MG TABLET PO SCH (09:00)
[2021-09-27] MEDS: FAMOTIDINE 20 MG TABLET PO SCH (09:00)
[2021-09-27] MEDS: MIRALAX 17 GM POWD.PACK PO SCH (09:00)
[2021-09-27] MEDS: CHOLECALCIFEROL 1,000 UNIT TABLET PO SCH (09:00)
[2021-09-27] MEDS: MUPIROCIN 2% OINT 22 GM TUBE NS SCH ×2 (09:00→21:59)
[2021-09-27] MEDS: FOLIC ACID 1 MG TABLET PO SCH (09:00)
[2021-09-27] MEDS: risperiDONE-M 0.5 MG TAB.RAPDIS PO SCH ×2 (09:00→17:00)
[2021-09-27] MEDS: METOPROLOL SUCCINATE XL 50 MG TAB.SR.24H PO SCH (09:00)
[2021-09-27] MEDS: DOCUSATE SODIUM 100 MG CAPSULE PO SCH (09:00)
[2021-09-27] MEDS: ENSURE WITH FIBER 237 ML LIQUID (CHOCOLATE) PO SCH ×3 (09:00→17:00)
[2021-09-27] MEDS: ASCORBIC ACID 500 MG TABLET PO SCH (09:00)
[2021-09-27] MEDS: OLANZAPINE 10 MG VIAL IM PRN ×2 (09:05→17:29)
[2021-09-27] MEDS: MEGESTROL ACETATE 20 MG TABLET PO SCH ×2 (11:45→17:00)
[2021-09-27 16:00] VITALS: BP 143/87
[2021-09-27 19:47] VITALS: BP 146/72
[2021-09-27] MEDS: SIMVASTATIN 20 MG TABLET PO SCH (21:00)
[2021-09-27] MEDS: ENOXAPARIN SODIUM 40 MG/0.4 ML DISP.SYRIN SQ SCH (21:57)
[2021-09-28 04:00] VITALS: BP 140/57
[2021-09-28] MEDS: risperiDONE-M 0.5 MG TAB.RAPDIS PO SCH ×2 (09:00→16:14)
[2021-09-28] MEDS: FAMOTIDINE 20 MG TABLET PO SCH (09:00)
[2021-09-28] MEDS: FOLIC ACID 1 MG TABLET PO SCH (09:00)
[2021-09-28] MEDS: MEGESTROL ACETATE 20 MG TABLET PO SCH ×2 (09:00→16:14)
[2021-09-28] MEDS: METOPROLOL SUCCINATE XL 50 MG TAB.SR.24H PO SCH (09:00)
[2021-09-28] MEDS: MIRALAX 17 GM POWD.PACK PO SCH (09:00)
[2021-09-28] MEDS: THIAMINE HCL 100 MG TABLET PO SCH (09:00)
[2021-09-28] MEDS: ASCORBIC ACID 500 MG TABLET PO SCH (09:00)
[2021-09-28] MEDS: DOCUSATE SODIUM 100 MG CAPSULE PO SCH (09:00)
[2021-09-28] MEDS: CHOLECALCIFEROL 1,000 UNIT TABLET PO SCH (09:00)
[2021-09-28] MEDS: ENSURE WITH FIBER 237 ML LIQUID (CHOCOLATE) PO SCH ×3 (09:05→16:14)
[2021-09-28] MEDS: OLANZAPINE 10 MG VIAL IM PRN ×2 (09:12→16:11)
[2021-09-28] MEDS: POTASSIUM CHLORIDE 20 MEQ in IV D5 1/2 NS 1000 ML 1,000 ML IV PRN ×2 (09:12→23:51)
[2021-09-28] MEDS: MUPIROCIN 2% OINT 22 GM TUBE NS SCH (09:20)
[2021-09-28] MEDS: ONDANSETRON 4 MG/2 ML VIAL IV PRN (11:30)
[2021-09-28 11:57] VITALS: BP 149/66
[2021-09-28] MEDS ORDERED: hydrALAZINE HCL 20 MG/1 ML VIAL IV PRN (12:00)
[2021-09-28] MEDS ORDERED: REMEDY ESSENTIAL ZINC PASTE 113 GM TOP PRN (12:15)
[2021-09-28 16:44] VITALS: BP 132/63
[2021-09-28 20:00] VITALS: BP 143/68
[2021-09-28] MEDS: SIMVASTATIN 20 MG TABLET PO SCH (21:00)
[2021-09-28] MEDS: REMEDY ESSENTIAL ZINC PASTE 113 GM TOP SCH (21:01)
[2021-09-28] MEDS: ENOXAPARIN SODIUM 40 MG/0.4 ML DISP.SYRIN SQ SCH (21:01)
[2021-09-29 06:45] LABS: BILIRUBIN,DIRECT 0.2 mg/dL (0.0-0.2); BILIRUBIN,TOTAL 0.6 mg/dL (0.2-1.0); CREATININE 1.1 mg/dL (0.6-1.3); POTASSIUM 3.9 mmol/L (3.5-5.1); TOTAL PROTEIN, SERUM 5.9 g/dL (6.4-8.2)
[2021-09-29 07:08] VITALS: BP 112/55
[2021-09-29] MEDS: MEGESTROL ACETATE 20 MG TABLET PO SCH ×2 (08:11→17:00)
[2021-09-29] MEDS: MIRALAX 17 GM POWD.PACK PO SCH (08:11)
[2021-09-29] MEDS: THIAMINE HCL 100 MG TABLET PO SCH (08:11)
[2021-09-29] MEDS: ENSURE WITH FIBER 237 ML LIQUID (CHOCOLATE) PO SCH ×3 (08:11→17:00)
[2021-09-29] MEDS: FOLIC ACID 1 MG TABLET PO SCH (08:11)
[2021-09-29] MEDS: risperiDONE-M 0.5 MG TAB.RAPDIS PO SCH ×2 (08:11→17:00)
[2021-09-29] MEDS: METOPROLOL SUCCINATE XL 50 MG TAB.SR.24H PO SCH (08:11)
[2021-09-29] MEDS: DOCUSATE SODIUM 100 MG CAPSULE PO SCH (08:11)
[2021-09-29] MEDS: FAMOTIDINE 20 MG TABLET PO SCH (08:11)
[2021-09-29] MEDS: CHOLECALCIFEROL 1,000 UNIT TABLET PO SCH (08:12)
[2021-09-29] MEDS: ASCORBIC ACID 500 MG TABLET PO SCH (08:12)
[2021-09-29] MEDS: REMEDY ESSENTIAL ZINC PASTE 113 GM TOP SCH ×2 (08:12→20:37)
[2021-09-29] MEDS: OLANZAPINE 10 MG VIAL IM PRN ×2 (08:43→17:41)
[2021-09-29] MEDS: POTASSIUM CHLORIDE 20 MEQ in IV D5 1/2 NS 1000 ML 1,000 ML IV PRN (14:36)
[2021-09-29 18:14] VITALS: BP 111/53
[2021-09-29 19:41] VITALS: BP 110/68
[2021-09-29] MEDS: ENOXAPARIN SODIUM 40 MG/0.4 ML DISP.SYRIN SQ SCH (20:36)
[2021-09-29] MEDS: SIMVASTATIN 20 MG TABLET PO SCH (20:39)
[2021-09-30] MEDS: POTASSIUM CHLORIDE 20 MEQ in IV D5 1/2 NS 1000 ML 1,000 ML IV PRN ×2 (04:57→18:34)
[2021-09-30 06:03] VITALS: BP 125/60
[2021-09-30] MEDS: risperiDONE-M 0.5 MG TAB.RAPDIS PO SCH ×2 (08:08→16:06)
[2021-09-30] MEDS: MIRALAX 17 GM POWD.PACK PO SCH (08:08)
[2021-09-30] MEDS: MEGESTROL ACETATE 20 MG TABLET PO SCH ×2 (08:08→16:04)
[2021-09-30] MEDS: METOPROLOL SUCCINATE XL 50 MG TAB.SR.24H PO SCH (08:08)
[2021-09-30] MEDS: FAMOTIDINE 20 MG TABLET PO SCH (08:08)
[2021-09-30] MEDS: DOCUSATE SODIUM 100 MG CAPSULE PO SCH (08:08)
[2021-09-30] MEDS: FOLIC ACID 1 MG TABLET PO SCH (08:08)
[2021-09-30] MEDS: CHOLECALCIFEROL 1,000 UNIT TABLET PO SCH (08:09)
[2021-09-30] MEDS: ASCORBIC ACID 500 MG TABLET PO SCH (08:09)
[2021-09-30] MEDS: THIAMINE HCL 100 MG TABLET PO SCH (08:09)
[2021-09-30] MEDS: REMEDY ESSENTIAL ZINC PASTE 113 GM TOP SCH ×2 (08:23→20:09)
[2021-09-30] MEDS: OLANZAPINE 10 MG VIAL IM PRN ×2 (08:25→17:00)
[2021-09-30] MEDS: ENSURE WITH FIBER 237 ML LIQUID (CHOCOLATE) PO SCH ×3 (08:30→16:04)
[2021-09-30 11:13] VITALS: BP 140/66
[2021-09-30 14:51] VITALS: BP 145/68
[2021-09-30 19:49] VITALS: BP 122/73
[2021-09-30] MEDS: SIMVASTATIN 20 MG TABLET PO SCH (20:40)
[2021-09-30] MEDS: ENOXAPARIN SODIUM 40 MG/0.4 ML DISP.SYRIN SQ SCH (20:49)
[2021-09-30] MEDS: MIRTAZAPINE 15 MG TAB.RAPDIS SL SCH (21:00)
[2021-10-01] MEDS: POTASSIUM CHLORIDE 20 MEQ in IV D5 1/2 NS 1000 ML 1,000 ML IV PRN ×2 (06:04→18:11)
[2021-10-01 07:45] VITALS: BP 131/65
[2021-10-01] MEDS: FAMOTIDINE 20 MG TABLET PO SCH (08:01)
[2021-10-01] MEDS: THIAMINE HCL 100 MG TABLET PO SCH (08:01)
[2021-10-01] MEDS: METOPROLOL SUCCINATE XL 50 MG TAB.SR.24H PO SCH (08:01)
[2021-10-01] MEDS: ASCORBIC ACID 500 MG TABLET PO SCH (08:01)
[2021-10-01] MEDS: risperiDONE-M 0.5 MG TAB.RAPDIS PO SCH ×2 (08:01→16:40)
[2021-10-01] MEDS: OLANZAPINE 10 MG VIAL IM PRN ×2 (08:01→16:42)
[2021-10-01] MEDS: FOLIC ACID 1 MG TABLET PO SCH (08:02)
[2021-10-01] MEDS: CHOLECALCIFEROL 1,000 UNIT TABLET PO SCH (08:02)
[2021-10-01] MEDS: MIRALAX 17 GM POWD.PACK PO SCH (08:02)
[2021-10-01] MEDS: MEGESTROL ACETATE 20 MG TABLET PO SCH ×2 (08:02→16:39)
[2021-10-01] MEDS: DOCUSATE SODIUM 100 MG CAPSULE PO SCH (08:02)
[2021-10-01] MEDS: ENSURE WITH FIBER 237 ML LIQUID (CHOCOLATE) PO SCH ×3 (08:43→16:12)
[2021-10-01] MEDS: REMEDY ESSENTIAL ZINC PASTE 113 GM TOP SCH ×2 (09:50→23:25)
[2021-10-01 11:45] VITALS: BP 110/62
[2021-10-01] MEDS: MORPHINE SULFATE 2 MG/1 ML DISP.SYRIN IV PRN ×2 (13:18→23:20)
[2021-10-01 15:40] VITALS: BP 100/56
[2021-10-01 19:09] VITALS: BP 135/56
[2021-10-01] MEDS: MIRTAZAPINE 15 MG TAB.RAPDIS SL SCH (21:00)
[2021-10-01] MEDS: SIMVASTATIN 20 MG TABLET PO SCH (21:00)
[2021-10-01] MEDS: ENOXAPARIN SODIUM 40 MG/0.4 ML DISP.SYRIN SQ SCH (23:22)
[2021-10-02 06:00] VITALS: BP 133/66
[2021-10-02] MEDS: MEGESTROL ACETATE 20 MG TABLET PO SCH ×2 (08:05→16:16)
[2021-10-02] MEDS: MIRALAX 17 GM POWD.PACK PO SCH (08:05)
[2021-10-02] MEDS: FOLIC ACID 1 MG TABLET PO SCH (08:05)
[2021-10-02] MEDS: DOCUSATE SODIUM 100 MG CAPSULE PO SCH (08:05)
[2021-10-02] MEDS: FAMOTIDINE 20 MG TABLET PO SCH (08:05)
[2021-10-02] MEDS: ENSURE WITH FIBER 237 ML LIQUID (CHOCOLATE) PO SCH ×3 (08:05→16:16)
[2021-10-02] MEDS: THIAMINE HCL 100 MG TABLET PO SCH (08:06)
[2021-10-02] MEDS: METOPROLOL SUCCINATE XL 50 MG TAB.SR.24H PO SCH (08:06)
[2021-10-02] MEDS: risperiDONE-M 0.5 MG TAB.RAPDIS PO SCH ×2 (08:06→21:00)
[2021-10-02] MEDS: CHOLECALCIFEROL 1,000 UNIT TABLET PO SCH (08:07)
[2021-10-02] MEDS: ASCORBIC ACID 500 MG TABLET PO SCH (08:07)
[2021-10-02] MEDS: OLANZAPINE 10 MG VIAL IM PRN ×2 (08:21→21:10)
[2021-10-02 08:36] VITALS: BP 138/65
[2021-10-02] MEDS: REMEDY ESSENTIAL ZINC PASTE 113 GM TOP SCH ×2 (08:41→21:22)
[2021-10-02 15:29] VITALS: BP 128/61
[2021-10-02 20:00] VITALS: BP 152/58
[2021-10-02] MEDS: MIRTAZAPINE 15 MG TAB.RAPDIS SL SCH (21:00)
[2021-10-02] MEDS: SIMVASTATIN 20 MG TABLET PO SCH (21:00)
[2021-10-02] MEDS: ENOXAPARIN SODIUM 40 MG/0.4 ML DISP.SYRIN SQ SCH (21:17)
[2021-10-02] MEDS: POTASSIUM CHLORIDE 20 MEQ in IV D5 1/2 NS 1000 ML 1,000 ML IV PRN (23:04)
[2021-10-02] MEDS: MORPHINE SULFATE 2 MG/1 ML DISP.SYRIN IV PRN (23:56)
[2021-10-03 05:38] VITALS: BP 112/79
[2021-10-03] MEDS: ENSURE WITH FIBER 237 ML LIQUID (CHOCOLATE) PO SCH ×3 (08:56→16:04)
[2021-10-03] MEDS: DOCUSATE SODIUM 100 MG CAPSULE PO SCH (08:56)
[2021-10-03] MEDS: THIAMINE HCL 100 MG TABLET PO SCH (08:57)
[2021-10-03] MEDS: METOPROLOL SUCCINATE XL 50 MG TAB.SR.24H PO SCH (08:57)
[2021-10-03] MEDS: risperiDONE-M 0.5 MG TAB.RAPDIS PO SCH ×2 (08:57→21:00)
[2021-10-03] MEDS: FOLIC ACID 1 MG TABLET PO SCH (08:57)
[2021-10-03] MEDS: ASCORBIC ACID 500 MG TABLET PO SCH (08:57)
[2021-10-03] MEDS: FAMOTIDINE 20 MG TABLET PO SCH (08:57)
[2021-10-03] MEDS: MIRALAX 17 GM POWD.PACK PO SCH (08:57)
[2021-10-03] MEDS: CHOLECALCIFEROL 1,000 UNIT TABLET PO SCH (08:57)
[2021-10-03] MEDS: MEGESTROL ACETATE 20 MG TABLET PO SCH ×2 (08:57→16:04)
[2021-10-03] MEDS: OLANZAPINE 10 MG VIAL IM PRN ×2 (08:58→21:10)
[2021-10-03] MEDS: REMEDY ESSENTIAL ZINC PASTE 113 GM TOP SCH ×2 (09:09→21:01)
[2021-10-03 12:30] VITALS: BP 126/74
[2021-10-03] MEDS: POTASSIUM CHLORIDE 20 MEQ in IV D5 1/2 NS 1000 ML 1,000 ML IV PRN (12:45)
[2021-10-03 16:19] VITALS: BP 115/69
[2021-10-03 20:00] VITALS: BP 136/61
[2021-10-03] MEDS: SIMVASTATIN 20 MG TABLET PO SCH (21:00)
[2021-10-03] MEDS: MIRTAZAPINE 15 MG TAB.RAPDIS SL SCH (21:00)
[2021-10-03] MEDS: ENOXAPARIN SODIUM 40 MG/0.4 ML DISP.SYRIN SQ SCH (21:09)
[2021-10-04 04:00] VITALS: BP 130/66
[2021-10-04] MEDS: ENSURE WITH FIBER 237 ML LIQUID (CHOCOLATE) PO SCH ×3 (08:26→16:00)
[2021-10-04] MEDS: MEGESTROL ACETATE 20 MG TABLET PO SCH ×3 (08:26→16:47)
[2021-10-04] MEDS: risperiDONE-M 0.5 MG TAB.RAPDIS PO SCH ×2 (08:26→20:44)
[2021-10-04] MEDS: FOLIC ACID 1 MG TABLET PO SCH (08:26)
[2021-10-04] MEDS: MIRALAX 17 GM POWD.PACK PO SCH (08:26)
[2021-10-04] MEDS: FAMOTIDINE 20 MG TABLET PO SCH (08:26)
[2021-10-04] MEDS: DOCUSATE SODIUM 100 MG CAPSULE PO SCH (08:26)
[2021-10-04] MEDS: ASCORBIC ACID 500 MG TABLET PO SCH (08:27)
[2021-10-04] MEDS: CHOLECALCIFEROL 1,000 UNIT TABLET PO SCH (08:27)
[2021-10-04] MEDS: METOPROLOL SUCCINATE XL 50 MG TAB.SR.24H PO SCH ×2 (08:27→16:47)
[2021-10-04] MEDS: THIAMINE HCL 100 MG TABLET PO SCH (08:27)
[2021-10-04] MEDS: OLANZAPINE 10 MG VIAL IM PRN ×2 (08:28→20:39)
[2021-10-04] MEDS: REMEDY ESSENTIAL ZINC PASTE 113 GM TOP SCH ×2 (09:20→20:45)
[2021-10-04 11:30] VITALS: BP 151/63
[2021-10-04 15:38] VITALS: BP 141/64
[2021-10-04] MEDS: ENOXAPARIN SODIUM 40 MG/0.4 ML DISP.SYRIN SQ SCH (20:20)
[2021-10-04] MEDS: SIMVASTATIN 20 MG TABLET PO SCH (20:44)
[2021-10-04] MEDS: MIRTAZAPINE 15 MG TAB.RAPDIS SL SCH (20:44)
[2021-10-05] MEDS: MIRALAX 17 GM POWD.PACK PO SCH (09:00)
[2021-10-05] MEDS: METOPROLOL SUCCINATE XL 50 MG TAB.SR.24H PO SCH (09:00)
[2021-10-05] MEDS: FOLIC ACID 1 MG TABLET PO SCH (09:00)
[2021-10-05] MEDS: THIAMINE HCL 100 MG TABLET PO SCH (09:00)
[2021-10-05] MEDS: CHOLECALCIFEROL 1,000 UNIT TABLET PO SCH (09:00)
[2021-10-05] MEDS: DOCUSATE SODIUM 100 MG CAPSULE PO SCH (09:00)
[2021-10-05] MEDS: risperiDONE-M 0.5 MG TAB.RAPDIS PO SCH (10:03)
[2021-10-05] MEDS: MEGESTROL ACETATE 20 MG TABLET PO SCH (10:04)
[2021-10-05] MEDS: FAMOTIDINE 20 MG TABLET PO SCH (10:04)
[2021-10-05] MEDS: ASCORBIC ACID 500 MG TABLET PO SCH (10:04)
[2021-10-05] MEDS: ENSURE WITH FIBER 237 ML LIQUID (CHOCOLATE) PO SCH ×2 (10:06→13:38)
[2021-10-05] MEDS: REMEDY ESSENTIAL ZINC PASTE 113 GM TOP SCH (10:13)
[2021-10-05 11:21] VITALS: BP 105/41
[2021-10-05] MEDS: ACETAMINOPHEN 325 MG TABLET PO PRN (12:05)
[2021-10-05] MEDS ORDERED: MIRT-93 PO (12:48)
[2021-10-05] MEDS ORDERED: RISP2TAB5 PO (12:48)
== END 2021-10-05 14:50 | DRG 682 ==
LOC: MEDSURG3 13:12
PROVIDERS: ADMIT Nurse Practitioner Acute Care; ATTEND Nurse Practitioner Acute Care
PROC: 05HB33Z Insertion of Infusion Device into Right Basilic Vein, Percutaneous Approach (ICD-10-PCS; principal; 2021-09-24)
PROC: 05HF33Z Insertion of Infusion Device into Left Cephalic Vein, Percutaneous Approach (ICD-10-PCS; 2021-10-02)
DX: N17.0 Acute kidney failure with tubular necrosis (principal); G93.41 Metabolic encephalopathy; F20.0 Paranoid schizophrenia; E87.0 Hyperosmolality and hypernatremia; Z68.41 Body mass index [BMI] 40.0-44.9, adult; N39.0 Urinary tract infection, site not specified; E86.9 Volume depletion, unspecified; E66.01 Morbid (severe) obesity due to excess calories; D63.8 Anemia in other chronic diseases classified elsewhere; I25.2 Old myocardial infarction; Z91.14 Patient's other noncompliance with medication regimen; F50.89 Other specified eating disorder; E78.5 Hyperlipidemia, unspecified; T39.395A Adverse effect of other nonsteroidal anti-inflammatory drugs [NSAID], initial encounter; T46.5X5A Adverse effect of other antihypertensive drugs, initial encounter; Y92.239 Unspecified place in hospital as the place of occurrence of the external cause; I12.9 Hypertensive chronic kidney disease with stage 1 through stage 4 chronic kidney disease, or unspecified chronic kidney disease; N18.9 Chronic kidney disease, unspecified; I25.10 Atherosclerotic heart disease of native coronary artery without angina pectoris; F03.90 Unspecified dementia, unspecified severity, without behavioral disturbance, psychotic disturbance, mood disturbance, and anxiety; E86.0 Dehydration; F39 Unspecified mood [affective] disorder; K21.9 Gastro-esophageal reflux disease without esophagitis; B96.89 Other specified bacterial agents as the cause of diseases classified elsewhere; Z22.322 Carrier or suspected carrier of Methicillin resistant Staphylococcus aureus
CPT/HCPCS: 36415; 70030-TC; 70450; 83690; 83735; 83935; 84100; 84300; 84443; 84550; 85025; 87086; 97161; A6209; C1758; G0378; J0696; J1644; J1650; J2270; J2358; J2405; J3480; J3490; J7040; J7042; J7060; J7070